=== PATIENT | female | born 1965 | race Caucasian/White ===

== ENCOUNTER 2016-09-11 09:55 | Emergency (ER) | payer BC ==
[~2016-09-11] VITALS: Wt 70.8 kg
[~2016-09-11 09:55] MED LIST: ATIVAN PO; CARAFATE1 GM/10 ML PO; CYMBALTA30 MG PO; HYDROCODONE BIT1 T11 PO; METOPROLOL SR25 MG PO; MIRALAX17 GM/DOSE PO; NEURONTIN300 MG PO; PAXIL10 MG PO; PLAQUENIL200 MG PO; SYNTHROID0.025 MG PO
[2016-09-11] MEDS ORDERED: LEVOTHYROXIN0.175 MG PO (09:58)
[2016-09-11] MEDS ORDERED: PREDNISONE10 MG PO (10:13)
== END 2016-09-11 10:20 | disposition home or self-care (01) ==
LOC: ED 09:55
DX: L23.7 Allergic contact dermatitis due to plants, except food (principal); Z79.899 Other long term (current) drug therapy

== ENCOUNTER 2016-10-25 04:47 | Emergency (ER) | payer BC ==
[~2016-10-25] VITALS: Ht 160 cm; Wt 68.0 kg
[~2016-10-25 04:47] MED LIST changes: +LEVOTHYROXIN0.175 MG PO; +PREDNISONE10 MG PO
[2016-10-25] MEDS ORDERED: PROTONIX20 MG PO (04:59)
[2016-10-25 05:49] LABS: BASO % 0.9 % (0.0-1.0); EOS # 0.1 10*3/uL (0.0-0.4); EOS % 1.3 % (1.0-4.0); HEMATOCRIT 47.1 % (37.0-47.0); HEMOGLOBIN 15.6 g/dl (12.0-16.0); LYMPH # 1.3 10*3/uL (1.3-4.4); LYMPH % 27.5 % (27.0-41.0); MEAN CELL VOLUME 88.2 fl (81.0-99.0); MEAN CORPUSCULAR HGB 29.2 pg (27.0-31.0); MEAN CORPUSCULAR HGB CONC 33.1 g/dl (33.0-37.0); MEAN PLATELET VOLUME 11.3 fl (9.6-12.3); MONO # 0.5 10*3/uL (0.1-1.0); MONO % 11.1 % (3.0-9.0); NEUT # 2.7 10*3/uL (2.3-7.9); NEUT % 58.5 % (47.0-73.0); PLATELET COUNT AUTOMATED 248 10*3/uL (130-400); RED BLOOD COUNT 5.34 10*6/uL (4.10-5.10); RED CELL DISTRI WIDTH 12.4 % (0-14.5); WHITE BLOOD COUNT 4.6 10*3/uL (4.8-10.8)
[2016-10-25 05:57] LABS: ALBUMIN 2.2 gm/dl (3.1-4.5); ALKALINE PHOSPHATASE 127 U/L (45-117); BILIRUBIN, TOTAL 0.4 mg/dl (0.2-1.0); BUN 9 mg/dl (7-24); C-REACTIVE PROTEIN 0.59 MG/DL (0-0.3); CARBON DIOXIDE 29 mmol/L (21-32); CHLORIDE 108 mmol/L (98-107); EST GLOM FILT AFRICAN AMERICAN > 60 ml/min; GLUCOSE 99 mg/dL (65-99); MAGNESIUM 1.8 mg/dL (1.5-2.1); POTASSIUM 3.7 mmol/L (3.5-5.1); SGOT/AST 21 IU/L (3-35); SGPT/ALT 17 U/L (12-78); SODIUM 144 mmol/L (136-145); TOTAL PROTEIN 6.4 gm/dL (6.4-8.2)
[2016-10-25] MEDS ORDERED: CARAFATE1 G1 PO (06:40)
[2016-10-25] MEDS ORDERED: PROTONIX40 MG PO (06:40)
== END 2016-10-25 07:13 | disposition home or self-care (01) ==
LOC: ED 04:47
PROVIDERS: Emergency Medicine Emergency Medical Services
DX: K21.9 Gastro-esophageal reflux disease without esophagitis (principal); R10.9 Unspecified abdominal pain; R11.2 Nausea with vomiting, unspecified; Z88.5 Allergy status to narcotic agent; Z90.49 Acquired absence of other specified parts of digestive tract; Z79.899 Other long term (current) drug therapy

== ENCOUNTER 2016-11-14 17:42 | Emergency (ER) | payer BC ==
[~2016-11-14] VITALS: Ht 160 cm; Wt 68.0 kg
[~2016-11-14 17:42] MED LIST changes: +CARAFATE1 G1 PO; +PROTONIX20 MG PO; +PROTONIX40 MG PO
== END 2016-11-14 20:38 | disposition home or self-care (01) ==
LOC: ED 17:42
DX: M25.561 Pain in right knee (principal); Z90.49 Acquired absence of other specified parts of digestive tract; K21.9 Gastro-esophageal reflux disease without esophagitis; Z88.5 Allergy status to narcotic agent; Z96.651 Presence of right artificial knee joint

== ENCOUNTER 2017-07-21 13:35 | Emergency (ER) | payer BC ==
[~2017-07-21] VITALS: Ht 160 cm; Wt 64.4 kg
[2017-07-21 14:34] LABS: BASO % 0.7 % (0.0-1.0); EOS # 0.1 10*3/uL (0.0-0.4); EOS % 1.4 % (1.0-4.0); HEMATOCRIT 41.6 % (37.0-47.0); HEMOGLOBIN 13.9 g/dl (12.0-16.0); LYMPH # 1.4 10*3/uL (1.3-4.4); LYMPH % 25.5 % (27.0-41.0); MEAN CELL VOLUME 88.3 fl (81.0-99.0); MEAN CORPUSCULAR HGB 29.5 pg (27.0-31.0); MEAN CORPUSCULAR HGB CONC 33.4 g/dl (33.0-37.0); MEAN PLATELET VOLUME 10.5 fl (9.6-12.3); MONO # 0.5 10*3/uL (0.1-1.0); MONO % 8.6 % (3.0-9.0); NEUT # 3.6 10*3/uL (2.3-7.9); NEUT % 63.6 % (47.0-73.0); PLATELET COUNT AUTOMATED 254 10*3/uL (130-400); RED BLOOD COUNT 4.71 10*6/uL (4.10-5.10); RED CELL DISTRI WIDTH 13.3 % (0-14.5); WHITE BLOOD COUNT 5.6 10*3/uL (4.8-10.8)
[2017-07-21 14:49] LABS: ALBUMIN 2.3 gm/dl (3.1-4.5); ALKALINE PHOSPHATASE 118 U/L (45-117); BUN 9 mg/dl (7-24); CHLORIDE 108 mmol/L (98-107); CREATININE 0.65 mg/dL (0.55-1.02); POTASSIUM 3.6 mmol/L (3.5-5.1); SGOT/AST 24 IU/L (3-35); SGPT/ALT 22 U/L (12-78); SODIUM 144 mmol/L (136-145); TOTAL PROTEIN 5.7 gm/dL (6.4-8.2)
== END 2017-07-21 16:30 | disposition home or self-care (01) ==
LOC: ED 13:35
PROVIDERS: Nurse Practitioner Family
DX: G89.18 Other acute postprocedural pain (principal); R10.32 Left lower quadrant pain; K21.9 Gastro-esophageal reflux disease without esophagitis; Z79.899 Other long term (current) drug therapy; Z98.890 Other specified postprocedural states; Z90.49 Acquired absence of other specified parts of digestive tract; Z90.710 Acquired absence of both cervix and uterus; Z88.6 Allergy status to analgesic agent; Z98.84 Bariatric surgery status

== ENCOUNTER 2018-04-16 08:53 | Inpatient (IN) | payer BC ==
--- NOTE | ~2018-04-16 | EKG ---
[place], [place] ELECTROCARDIOGRAM REPORT NAME: DIAMOND CORTÉS UNIT #: [id number] ROOM: 405 DOCTOR: JULIAN DRAFT REPORT BIRTHDATE: [birth year] [facility] Test Date: 2018-04-16 Test Time: 14:52:05 Pat Name: DIAMOND CORTÉS Department: Room: 405 Gender: F Trouble Lineman: : 1965 Requested By: BRIELLE HAINES Order Number: [id number] Reading MD: Mk Ramirez MD Measurements Intervals [place] Rate: 74 P: 77 [place]: 155 QRS: 54 QRSD: 72 T: 70 QT: 398 QTc: 442 Interpretive Statements Sinus arrhythmia Compared to ECG 04/16/2018 11:37:03 Sinus rhythm no longer present Ventricular premature complex(es) no longer present Electronically Signed On 04-16-2018 17:49:42 PST by Mk Ramirez MD CM:EKGRPT:ELECTROCARDIOGRAM REPORT [id number] 1749 BRIELLE HURTADO DRAFT REPORT BRIELLE HAINES DO
--- NOTE | ~2018-04-16 | EKG ---
[place], [place] ELECTROCARDIOGRAM REPORT NAME: DIAMOND CORTÉS UNIT #: [id number] ROOM: [facility] DOCTOR: JULIAN DRAFT REPORT BIRTHDATE: [birth year] [facility] Test Date: 2018-04-16 Test Time: 23:57:39 Pat Name: DIAMOND CORTÉS Department: Room: [place] [address] Gender: F Tin Pot Operator: Shraddha Lilly : 1965 Requested By: VLADIMIR SARGENT Order Number: [id number] Reading MD: Mk Ramirez MD Measurements Intervals [place] Rate: 74 P: 80 [place]: 143 QRS: 56 QRSD: 77 T: 55 QT: 434 QTc: 482 Interpretive Statements Sinus rhythm Atrial premature complexes Probable left atrial enlargement Probable left ventricular hypertrophy Compared to ECG 04/16/2018 17:56:02 Atrial premature complex(es) now present Electronically Signed On 04-18-2018 16:25:31 PST by Mk Ramirez MD CM:EKGRPT:ELECTROCARDIOGRAM REPORT [id number] 1625 VLADIMIR SARGENT EPIPHANY DRAFT REPORT VLADIMIR SARGENT
--- NOTE | ~2018-04-16 | EKG ---
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
--- NOTE | ~2018-04-16 | EKG ---
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
--- NOTE | ~2018-04-16 | EKG ---
[place], [place] ELECTROCARDIOGRAM REPORT NAME: DIAMOND CORTÉS UNIT #: [id number] ROOM: [facility] DOCTOR: JULIAN DRAFT REPORT BIRTHDATE: [birth year] [facility] Test Date: 2018-04-17 Test Time: 09:31:39 Pat Name: DIAMOND CORTÉS Department: Room: [place] [address] Gender: F Reeler Operator: Maria Esther Noble : 1965 Requested By: JOAQUIN BENZ Order Number: [id number] Reading MD: Mk Ramirez MD Measurements Intervals [place] Rate: 77 P: 68 [place]: 142 QRS: 46 QRSD: 78 T: 46 QT: 381 QTc: 432 Interpretive Statements Sinus rhythm Consider left atrial enlargement Compared to ECG 04/16/2018 17:56:02 No significant changes Electronically Signed On 04-17-2018 8:10:24 PST by kM Ramirez MD CM:EKGRPT:ELECTROCARDIOGRAM REPORT 9 JOAQUIN BENZ EPIPHANY DRAFT REPORT JOAQUIN BENZ
--- NOTE | ~2018-04-16 | EKG ---
[place], [place] ELECTROCARDIOGRAM REPORT NAME: DIAMOND CORTÉS UNIT #: [id number] ROOM: 405 DOCTOR: JULIAN DRAFT REPORT BIRTHDATE: [birth year] [facility] Test Date: 2018-04-16 Test Time: 11:37:03 Pat Name: DIAMOND CORTÉS Department: Room: 405 Gender: F Meteorology Instructor: Maria Esther Noble : 1965 Requested By: BRIELLE HAINES Order Number: [id number] Reading MD: Mk Ramirez MD Measurements Intervals [place] Rate: 71 P: 81 [place]: 148 QRS: 60 QRSD: 76 T: 60 QT: 383 QTc: 417 Interpretive Statements Sinus rhythm Multiple premature complexes, vent \T\ supraven Compared to earlier ECG this date PACs and PVCs are now present Electronically Signed On 04-16-2018 11:13:56 PST by Mk Ramirez MD CM:EKGRPT:ELECTROCARDIOGRAM REPORT 1137 1113 BRIELLE HURTADO DRAFT REPORT BRIELLE HAINES DO
--- NOTE | ~2018-04-16 | EKG ---
[place], [place] ELECTROCARDIOGRAM REPORT NAME: DIAMOND CORTÉS UNIT #: [id number] ROOM: [facility] DOCTOR: JULIAN DRAFT REPORT BIRTHDATE: [birth year] [facility] Test Date: 2018-04-17 Test Time: 08:19:35 Pat Name: DIAMOND CORTÉS Department: Room: [facility] Gender: F Paper Supervisor: Maria Esther Noble : 1965 Requested By: JOAQUIN BENZ Order Number: [id number] Reading MD: Mk Ramirez MD Measurements Intervals [place] Rate: 67 P: 74 [place]: 150 QRS: 47 QRSD: 73 T: 57 QT: 386 QTc: 408 Interpretive Statements Sinus rhythm Compared to ECG 04/16/2018 17:56:02 Atrial abnormality no longer present Electronically Signed On 04-17-2018 8:10:07 PST by Mk Ramirez MD CM:EKGRPT:ELECTROCARDIOGRAM REPORT 8 9 JOAQUIN BENZ EPIPHANY DRAFT REPORT JOAQUIN BENZ
--- NOTE | ~2018-04-16 | EKG ---
[place], [place] ELECTROCARDIOGRAM REPORT NAME: DIAMOND CORTÉS UNIT #: [id number] ROOM: 405 DOCTOR: JULIAN DRAFT REPORT BIRTHDATE: [birth year] [facility] Test Date: 2018-04-16 Test Time: 08:58:33 Pat Name: DIAMOND CORTÉS Department: Room: 405 Gender: F Consumer Relations Specialist: Maria Esther Noble : 1965 Requested By: BRIELLE HAINES Order Number: [id number] Reading MD: Mk Ramirez MD Measurements Intervals [place] Rate: 72 P: 96 [place]: 148 QRS: 83 QRSD: 72 T: 82 QT: 384 QTc: 421 Interpretive Statements Sinus rhythm Electronically Signed On 04-16-2018 11:05:20 PST by Mk Ramirez MD CM:EKGRPT:ELECTROCARDIOGRAM REPORT [id number] 1105 BRIELLE HURTADO DRAFT REPORT BRIELLE HAINES DO
--- NOTE | ~2018-04-16 | EKG ---
[place], [place] ELECTROCARDIOGRAM REPORT NAME: DIAMOND CORTÉS UNIT #: [id number] ROOM: 405 DOCTOR: JULIAN DRAFT REPORT BIRTHDATE: [birth year] [facility] Test Date: 2018-04-16 Test Time: 17:56:02 Pat Name: DIAMOND CORTÉS Department: Room: 405 2 Gender: F Cost Control Supervisor: : 1965 Requested By: MK RAYGOZA Order Number: [id number] Reading MD: Mk Raygoza MD Measurements Intervals [place] Rate: 84 P: 86 [place]: 154 QRS: 48 QRSD: 68 T: 51 QT: 367 QTc: 434 Interpretive Statements Sinus rhythm Left atrial enlargement Compared to ECG 04/16/2018 11:37:03 Atrial abnormality now present Electronically Signed On 04-16-2018 17:50:51 PST by Mk Raygoza MD CM:EKGRPT:ELECTROCARDIOGRAM REPORT 175 [id number] MK RAYGOZA MD EPIPHANY DRAFT REPORT MK RAYGOZA MD
[2018-04-16 08:59] VITALS: BP 157/98
[2018-04-16 09:19] LABS: EOS # 0.1 10*3/uL (0.0-0.4); EOS % 1.2 % (1.0-4.0); HEMATOCRIT 40.6 % (37.0-47.0); HEMOGLOBIN 13.2 g/dl (12.0-16.0); LYMPH # 1.4 10*3/uL (1.3-4.4); LYMPH % 33.6 % (27.0-41.0); MEAN CELL VOLUME 87.9 fl (81.0-99.0); MEAN CORPUSCULAR HGB 28.6 pg (27.0-31.0); MEAN CORPUSCULAR HGB CONC 32.5 g/dl (33.0-37.0); MEAN PLATELET VOLUME 10.1 fl (9.6-12.3); MONO # 0.4 10*3/uL (0.1-1.0); MONO % 10.6 % (3.0-9.0); NEUT # 2.2 10*3/uL (2.3-7.9); NEUT % 53.6 % (47.0-73.0); PLATELET COUNT AUTOMATED 267 10*3/uL (130-400); RED BLOOD COUNT 4.62 10*6/uL (4.10-5.10); RED CELL DISTRI WIDTH 13.6 % (0-14.5); WHITE BLOOD COUNT 4.1 10*3/uL (4.8-10.8)
[2018-04-16 09:27] LABS: ACT PARTIAL THROMBO TIME 23.8 SECONDS (20.8-31.5); INTERNATIONAL NORM RATIO 0.9 (2.0-3.5)
[2018-04-16 09:34] LABS: LIPASE 446 U/L (73-393)
[2018-04-16 09:35] LABS: ALBUMIN 2.2 gm/dl (3.1-4.5); ALKALINE PHOSPHATASE 116 U/L (45-117); BUN 11 mg/dl (7-24); CHLORIDE 110 mmol/L (98-107); CREATININE 0.55 mg/dL (0.55-1.02); POTASSIUM 4.1 mmol/L (3.5-5.1); SGOT/AST 13 IU/L (3-35); SGPT/ALT 15 U/L (12-78); SODIUM 142 mmol/L (136-145); TOTAL PROTEIN 6.1 gm/dL (6.4-8.2)
[2018-04-16 09:37] LABS: TROPONIN I < 0.015 ng/ml (<0.045)
[2018-04-16 10:10] VITALS: BP 143/80
[2018-04-16] MEDS ORDERED: Synthroid,Levo50 MCG PO (11:35)
[2018-04-16] MEDS ORDERED: NEURONTIN400 MG PO (11:36)
[2018-04-16] MEDS ORDERED: PANTOPRAZOLE SO40 MG PO (11:36)
[2018-04-16] MEDS ORDERED: SEPTDS PO (11:45)
[2018-04-16 12:00] VITALS: BP 116/91
[2018-04-16 16:00] VITALS: BP 130/81
[2018-04-16 20:00] VITALS: BP 134/83
[2018-04-17] VITALS: BP 142/78
[2018-04-17 05:55] LABS: BASO % 0.5 % (0.0-1.0); BUN 9 mg/dl (7-24); CHLORIDE 111 mmol/L (98-107); CHOLESTEROL 179 mg/dL (<200); CREATININE 0.63 mg/dL (0.55-1.02); EOS % 0.1 % (1.0-4.0); HDL CHOLESTEROL 57 mg/dl (40-60); HEMATOCRIT 39.4 % (37.0-47.0); HEMOGLOBIN 12.6 g/dl (12.0-16.0); LDL CHOLESTEROL 115 mg/dL (9-159); LYMPH # 1.5 10*3/uL (1.3-4.4); LYMPH % 17.4 % (27.0-41.0); MEAN CELL VOLUME 89.5 fl (81.0-99.0); MEAN CORPUSCULAR HGB 28.6 pg (27.0-31.0); MEAN PLATELET VOLUME 10.2 fl (9.6-12.3); MONO # 0.8 10*3/uL (0.1-1.0); MONO % 8.5 % (3.0-9.0); NEUT # 6.4 10*3/uL (2.3-7.9); NEUT % 73.3 % (47.0-73.0); PHOSPHOROUS 3.7 mg/dL (2.5-4.9); PLATELET COUNT AUTOMATED 265 10*3/uL (130-400); POTASSIUM 4.2 mmol/L (3.5-5.1); RED CELL DISTRI WIDTH 13.7 % (0-14.5); SODIUM 147 mmol/L (136-145); TRIGLYCERIDES 37 mg/dl (<150); VLDL CHOLESTEROL 7 mg/dL (6-40); WHITE BLOOD COUNT 8.8 10*3/uL (4.8-10.8)
[2018-04-17 06:34] VITALS: BP 122/76
[2018-04-17 06:50] LABS: ACT PARTIAL THROMBO TIME 22.5 SECONDS (20.8-31.5)
[2018-04-17 08:00] VITALS: BP 124/80
[2018-04-17 12:00] VITALS: BP 115/80
[2018-04-17 16:00] VITALS: BP 118/77
== END 2018-04-17 16:35 | disposition short-term general hospital (02) | DRG 280 ==
LOC: ED 08:53 → EDHOLD 09:48 → ICCU 09:48 → 4E 10:52 → ICCU 04-17 06:37
PROVIDERS: Emergency Medicine; Internal Medicine; Student in an Organized Health Care Education/Training Program; ADMIT Internal Medicine
DX: I21.4 Non-ST elevation (NSTEMI) myocardial infarction (principal); E43 Unspecified severe protein-calorie malnutrition; D72.819 Decreased white blood cell count, unspecified; E87.8 Other disorders of electrolyte and fluid balance, not elsewhere classified; K21.9 Gastro-esophageal reflux disease without esophagitis; M79.7 Fibromyalgia; Z96.619 Presence of unspecified artificial shoulder joint; R07.89 Other chest pain; F32.9 Major depressive disorder, single episode, unspecified; E66.3 Overweight; Z88.6 Allergy status to analgesic agent; Z68.28 Body mass index [BMI] 28.0-28.9, adult; Z90.49 Acquired absence of other specified parts of digestive tract; Z90.710 Acquired absence of both cervix and uterus; Z98.891 History of uterine scar from previous surgery; Z87.891 Personal history of nicotine dependence; Z82.3 Family history of stroke; Z79.899 Other long term (current) drug therapy

== ENCOUNTER 2018-04-20 16:21 | Emergency (ER) | payer BC ==
[~2018-04-20] VITALS: Ht 162.5 cm; Wt 73.5 kg
--- NOTE | ~2018-04-20 | EKG ---
[place], [place] ELECTROCARDIOGRAM REPORT NAME: DIAMOND CORTÉS UNIT #: [id number] ROOM: DOCTOR: JULIAN DRAFT REPORT BIRTHDATE: [address] [facility] Test Date: 2018-04-20 Test Time: 16:59:55 Pat Name: DIAMOND CORTÉS Department: Room: Gender: F Short Goods Drier: WILY : 1965 Requested By: IVELISSE IQBAL Order Number: [id number] Reading MD: Measurements Intervals [place] Rate: 71 P: 62 AR: 139 QRS: 56 QRSD: 71 T: 34 QT: 385 QTc: 419 Interpretive Statements Sinus rhythm Consider left ventricular hypertrophy Baseline wander in lead(s) III,V3 Compared to ECG 04/17/2018 09:31:39 No significant changes CM:EKGRPT:ELECTROCARDIOGRAM REPORT 1659 1401 IVELISSE JORDAN DRAFT REPORT IVELISSE PRESSLEY
[~2018-04-20 16:21] MED LIST changes: +NEURONTIN400 MG PO; +PANTOPRAZOLE SO40 MG PO; +SEPTDS PO; +Synthroid,Levo50 MCG PO
[2018-04-20 17:12] LABS: BASO % 0.8 % (0.0-1.0); EOS # 0.1 10*3/uL (0.0-0.4); EOS % 1.4 % (1.0-4.0); HEMATOCRIT 41.5 % (37.0-47.0); HEMOGLOBIN 13.3 g/dl (12.0-16.0); LYMPH # 1.6 10*3/uL (1.3-4.4); LYMPH % 31.5 % (27.0-41.0); MEAN CELL VOLUME 88.5 fl (81.0-99.0); MEAN CORPUSCULAR HGB 28.4 pg (27.0-31.0); MEAN PLATELET VOLUME 10.5 fl (9.6-12.3); MONO # 0.5 10*3/uL (0.1-1.0); MONO % 10.8 % (3.0-9.0); NEUT # 2.7 10*3/uL (2.3-7.9); NEUT % 55.1 % (47.0-73.0); PLATELET COUNT AUTOMATED 295 10*3/uL (130-400); RED BLOOD COUNT 4.69 10*6/uL (4.10-5.10); RED CELL DISTRI WIDTH 13.7 % (0-14.5); WHITE BLOOD COUNT 4.9 10*3/uL (4.8-10.8)
[2018-04-20 17:21] LABS: ACT PARTIAL THROMBO TIME 24.3 SECONDS (20.8-31.5)
[2018-04-20 17:32] LABS: ALBUMIN 2.4 gm/dl (3.1-4.5); ALKALINE PHOSPHATASE 189 U/L (45-117); BUN 13 mg/dl (7-24); CHLORIDE 106 mmol/L (98-107); CREATININE 0.77 mg/dL (0.55-1.02); LIPASE 53 U/L (73-393); POTASSIUM 4.1 mmol/L (3.5-5.1); SGOT/AST 25 IU/L (3-35); SGPT/ALT 43 U/L (12-78); SODIUM 139 mmol/L (136-145); TOTAL PROTEIN 6.6 gm/dL (6.4-8.2)
[2018-04-20 17:35] LABS: TROPONIN I 0.603 ng/ml (<0.045)
[2018-04-20 17:56] LABS: BILIRUBIN NEGATIVE (NEGATIVE); BLOOD NEGATIVE (NEGATIVE); CLARITY CLEAR (CLEAR); COLOR YELLOW (YELLOW); GLUCOSE NEGATIVE (NEGATIVE); KETONE NEGATIVE (NEGATIVE); LEUKO ESTERASE NEGATIVE (NEGATIVE); NITRITE NEGATIVE (NEGATIVE)
[2018-04-20 18:11] LABS: BACTERIA 1+
== END 2018-04-20 18:02 | disposition home or self-care (01) ==
LOC: ED 16:21
PROVIDERS: Physician Assistant
DX: R20.2 Paresthesia of skin (principal); Z88.8 Allergy status to other drugs, medicaments and biological substances; Z79.899 Other long term (current) drug therapy; Z79.2 Long term (current) use of antibiotics; Z90.710 Acquired absence of both cervix and uterus; Z90.49 Acquired absence of other specified parts of digestive tract; Z87.891 Personal history of nicotine dependence

== ENCOUNTER 2018-05-19 14:40 | Emergency (ER) | payer BC ==
[2018-05-19] MEDS ORDERED: BRILINTA90 M1 PO (15:25)
[2018-05-19] MEDS ORDERED: ASPIRIN CHILDRE81 MG PO (15:26)
[2018-05-19] MEDS ORDERED: METOPROLOL SUCC25 M2 PO (15:26)
[2018-05-19] MEDS ORDERED: ATORVASTATIN CA40 M1 PO (15:27)
[2018-05-19] MEDS ORDERED: HYDROXYZINE HCL25 MG PO (15:28)
== END 2018-05-19 15:39 | disposition home or self-care (01) ==
LOC: ED 14:40
DX: M79.621 Pain in right upper arm (principal); K21.9 Gastro-esophageal reflux disease without esophagitis; E03.9 Hypothyroidism, unspecified; J45.909 Unspecified asthma, uncomplicated; Z88.6 Allergy status to analgesic agent; Z79.899 Other long term (current) drug therapy; Z79.82 Long term (current) use of aspirin; Z87.891 Personal history of nicotine dependence; X58.XXXA Exposure to other specified factors, initial encounter; Y93.89 Activity, other specified; Y92.89 Other specified places as the place of occurrence of the external cause; Y99.8 Other external cause status

== ENCOUNTER 2018-10-28 09:07 | Inpatient (IN) | payer BC ==
[~2018-10-28] VITALS: Ht 162.6 cm; Wt 79.4 kg
--- NOTE | ~2018-10-28 | EKG ---
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
--- NOTE | ~2018-10-28 | CON ---
[place], [place] REPORT OF CONSULTATION NAME: DIAMOND CORTÉS [facility] #: [id number] UNIT #: [id number] ROOM: 521 DOCTOR: IGOR URBINA MD BIRTHDATE: [birth year] DOS: 10/29/2018 CARDIOLOGY CONSULTATION REASON FOR CONSULTATION: Chest pain. HISTORY OF PRESENT ILLNESS: The patient is a 53-year-old patient with coronary artery disease, previous myocardial angina in 04/2018 with a coronary stent in 04/2018, admitted to the Emergency Room for midscapular pain. She noted that in the morning she was visiting her sister. At that time she noted to have pain in the upper mid back, in the mid scapular area. She described this as a punch sensation, it is moderate in severity. This is more as constant pain. She presented to the Emergency Room and admitted to the hospital and Cardiology was consulted for further recommendations. She had about 3 stents inserted in 04/2018 in [place]. Now, she is compliant with her medications, especially aspirin and Brilinta. She denies exertional chest pains, palpitations or dizziness. No PND or orthopnea. No shortness of breath. No fever and chills. The patient did have some nausea yesterday. No cough or hemoptysis. No tingling, numbness or weakness. No bladder symptoms. No genitourinary symptoms. REVIEW OF SYSTEMS: Review of 10 systems negative except as mentioned above. PAST MEDICAL HISTORY: 1. Coronary artery disease, status post stents x 3 in 04/2018, details unknown. 2. History of lupus. 3. Acid reflux. 4. Depression. 5. Hypothyroidism. 6. Fibromyalgia. PAST SURGICAL HISTORY: 1. History of coronary artery stents in 04/2018. 2. History of gastric bypass about 5 years ago with revision in 06/2017. 3. History of cholecystectomy. 4. History of hysterectomy. 5. History of knee replacement. 6. History of shoulder replacement. FAMILY HISTORY: Father healthy at age 82. Mother has a cancer at age 82. Sister had a stroke. Brother had coronary artery disease. ALLERGIES: Reviewed. HOME MEDICATIONS: Reviewed including aspirin, Brilinta, metoprolol, and Lipitor. PHYSICAL EXAMINATION: VITAL SIGNS: Blood pressure 126/70, pulse 78, respiratory rate 16. GENERAL: Alert, comfortable, in no acute distress. [place], [place] REPORT OF CONSULTATION [id number] UNIT #: [id number] ROOM: 521 DOCTOR: CIARA BHATT,IGOR BIRTHDATE: [birth year] HEENT: Pupils are round and equal. No jaundice. Tongue was moist. NECK: Supple. No distended neck veins. No carotid bruit. CHEST: Symmetrical, nontender. LUNGS: Clear to auscultation bilaterally. HEART: Regular rhythm, no S3, no palpable thrills. ABDOMEN: Benign, nontender. Bowel sounds normal. EXTREMITIES: Showed no edema. Distal pulses palpable. SKIN: Warm and dry. No cyanosis, no clubbing. RECTAL: Deferred. GENITOURINARY: Deferred. NEUROLOGIC: The patient is alert with no focal neurologic deficit. PSYCHIATRIC: The patient is alert with good mood and affect. REVIEW OF THE DIAGNOSTIC TESTS: EKG showed normal sinus rhythm. Her labs reviewed. Cardiac enzymes unremarkable. IMPRESSION: 1. Chest pain, atypical, myocardial infarction ruled out. 2. Coronary artery disease, status post stents in 04/2018. 3. History of lupus. 4. Acid reflux. 5. Hypothyroidism. 6. Fibromyalgia. RECOMMENDATIONS: 1. Continue current medications. The patient was discussed the importance of the dual antiplatelet therapy until 04/2019 due to her coronary stents. 2. Lexiscan stress test today. If the Lexiscan stress is unremarkable, she can be discharged home from the cardiac standpoint. 3. The patient is advised to continue her dual antiplatelet therapy with aspirin, Brilinta, metoprolol and statins. The above recommendations discussed with the patient and all questions were answered, especially follow with her senior medical writer after discharge. IGOR URBINA MD CM:CONSTR:REPORT OF CONSULTATION 1510 11/17/18 0736 interface
--- NOTE | ~2018-10-28 | EKG ---
[place], [place] ELECTROCARDIOGRAM REPORT NAME: DIAMOND CORTÉS UNIT #: [id number] ROOM: 521 DOCTOR: JULIAN DRAFT REPORT BIRTHDATE: [birth year] [facility] Test Date: 2018-10-28 Test Time: 09:07:30 Pat Name: DIAMOND CORTÉS Department: ER Room: 521 Gender: F Marketing Copywriter: : 1965 Requested By: BRIELLE HAINES Order Number: [id number] Reading MD: Jacinta Corrales Measurements Intervals [place] Rate: 66 P: 26 [place]: 135 QRS: 52 QRSD: 81 T: 24 QT: 400 QTc: 420 Interpretive Statements Sinus rhythm Baseline wander in lead(s) II Compared to ECG 04/20/2018 16:59:55 No significant changes Electronically Signed On 10-29-2018 9:33:19 PDT by Jacinta Corrales CM:EKGRPT:ELECTROCARDIOGRAM REPORT 6 0933 BRIELLE HURTADO DRAFT REPORT BRIELLE HAINES DO
--- NOTE | ~2018-10-28 | ST ---
[place], [place] EXERCISE STRESS TEST REPORT NAME: DIAMOND CORTÉS [facility] #: [id number] UNIT #: [id number] ROOM: 521 DOCTOR: CIARA BHATT,IGOR BIRTHDATE: [birth year] DOS: 10/29/2018 LEXISCAN STRESS TEST REASON FOR TEST: Evaluation of chest pain. PHYSICAL EXAMINATION NECK: Supple. LUNGS: Clear anteriorly. HEART: Regular rhythm. PROTOCOL: Lexiscan protocol. Maximum heart rate 102, peak blood pressure 126/76. SYMPTOMS: The patient is chest pain free, developed mild shortness of breath, resolved. EKG: Resting EKG showed sinus rhythm. Stress EKG showed no ischemia, no arrhythmias. CONCLUSION: Clinically, the patient is chest pain free. EKG nonischemic. POST-STRESS COMPLICATIONS: None. The patient received a total of 0.4 mg of Lexiscan. IGOR URBINA MD CM:STRESS:EXERCISE STRESS TEST REPORT 1157 2325 IGOR URBINA MD
--- NOTE | ~2018-10-28 | EKG ---
[place], [place] ELECTROCARDIOGRAM REPORT NAME: DIAMOND CORTÉS UNIT #: [id number] ROOM: 521 DOCTOR: JULIAN DRAFT REPORT BIRTHDATE: [birth year] [facility] Test Date: 2018-10-28 Test Time: 15:18:09 Pat Name: DIAMOND CORTÉS Department: Room: 521 Gender: F Hospital Supervisor: Merissa Kendrick : 1965 Requested By: BRIELLE HAINES Order Number: [id number] Reading MD: Jacinta Corrales Measurements Intervals [place] Rate: 72 P: 88 [place]: 158 QRS: 58 QRSD: 81 T: 52 QT: 452 QTc: 495 Interpretive Statements Sinus rhythm Borderline prolonged QT interval Compared to ECG 04/20/2018 16:59:55 Electronically Signed On 10-29-2018 9:39:07 PDT by Jacinta Corrales CM:EKGRPT:ELECTROCARDIOGRAM REPORT 1518 0939 BRIELLE HURTADO DRAFT REPORT BRIELLE HAINES DO
[~2018-10-28 09:07] MED LIST changes: +ASPIRIN CHILDRE81 MG PO; +ATORVASTATIN CA40 M1 PO; +BRILINTA90 M1 PO; +HYDROXYZINE HCL25 MG PO; +METOPROLOL SUCC25 M2 PO
[2018-10-28 09:12] VITALS: BP 119/71
[2018-10-28 09:38] LABS: BASO % 0.9 % (0.0-1.0); EOS # 0.1 10*3/uL (0.0-0.4); EOS % 1.1 % (1.0-4.0); HEMATOCRIT 40.7 % (37.0-47.0); HEMOGLOBIN 12.6 g/dl (12.0-16.0); LYMPH # 1.5 10*3/uL (1.3-4.4); LYMPH % 31.5 % (27.0-41.0); MEAN CELL VOLUME 87.9 fl (81.0-99.0); MEAN CORPUSCULAR HGB 27.2 pg (27.0-31.0); MEAN PLATELET VOLUME 10.6 fl (9.6-12.3); MONO # 0.5 10*3/uL (0.1-1.0); MONO % 10.8 % (3.0-9.0); NEUT # 2.6 10*3/uL (2.3-7.9); NEUT % 55.3 % (47.0-73.0); PLATELET COUNT AUTOMATED 266 10*3/uL (130-400); RED BLOOD COUNT 4.63 10*6/uL (4.10-5.10); RED CELL DISTRI WIDTH 14.6 % (0-14.5); WHITE BLOOD COUNT 4.6 10*3/uL (4.8-10.8)
[2018-10-28 09:52] LABS: ACT PARTIAL THROMBO TIME 26.5 SECONDS (20.0-32.1)
[2018-10-28 09:56] LABS: ALBUMIN 2.2 gm/dl (3.1-4.5); ALKALINE PHOSPHATASE 132 U/L (45-117); BUN 13 mg/dl (7-24); CHLORIDE 111 mmol/L (98-107); CREATININE 0.71 mg/dL (0.55-1.02); POTASSIUM 4.3 mmol/L (3.5-5.1); SGOT/AST 22 IU/L (3-35); SGPT/ALT 28 U/L (12-78); SODIUM 145 mmol/L (136-145); TOTAL PROTEIN 6.1 gm/dL (6.4-8.2)
[2018-10-28 09:57] LABS: LIPASE 60 U/L (73-393)
[2018-10-28 09:58] LABS: TROPONIN I < 0.015 ng/ml (<0.045)
[2018-10-28 10:01] VITALS: BP 120/65
[2018-10-28 13:44] VITALS: BP 118/62
[2018-10-28 14:06] VITALS: BP 109/56
--- NOTE | 2018-10-28 14:06 | NUR ---
NOTED BLE BRUISING IN DIFFERENT STAGES OF HEALING. PATIENT STATES IT DO TO TAKING BRILINTA AT HOME AND NOW SHE BRUISES EASILY.
--- NOTE | 2018-10-28 14:06 | NUR ---
A 53, admitted to 5E, under the services of GERALDINE Bullock DO with a diagnosis of ATYPICAL CHEST PAIN. Chief complaint is MID-BACK PAIN. Patient arrived via bed from ER. Monitor applied. Initial assessment completed. Vital signs taken and recorded. GERALDINE BULLOCK DO notified of admission to the unit. Orders received. See assessment for past medical history, medications and allergies. Patient oriented to unit. Clothing/patient valuable form completed. ANITA BROWN
[2018-10-28] MEDS ORDERED: AMITRIPTYLINE25 MG PO (14:29)
--- NOTE | 2018-10-28 14:40 | NUR ---
INFORMED THAT MEDICATIONS ARE UPDATED.
--- NOTE | 2018-10-28 15:00 | NUR ---
Hep Lock discontinued, RAN. Site symptomatic, PAINFUL AT SITE. Pressure applied. Sterile dressing applied. ANITA BROWN
--- NOTE | 2018-10-28 15:01 | NUR ---
IV started right wrist with #20 angiocath after 0 attempts. The IV site was prepped with Chloraprep. Heparin lock attached. Sterile dressing applied. Patient tolerated precedure well. Procedure performed according to [facility] policy & procedure. ANITA BROWN
[2018-10-28 16:00] VITALS: BP 134/80
--- NOTE | 2018-10-28 17:50 | NUR ---
CONSULT MESSAGE SENT TO .
--- NOTE | 2018-10-28 17:55 | NUR ---
DR. URBINA CALLED BACK, INFORMED OF PATIENT. STATED STRESS TEST IN AM, NPO AFTER MIDNIGHT EXCEPT MEDS.
[2018-10-28 20:00] VITALS: BP 127/80
--- NOTE | 2018-10-28 20:45 | NUR ---
ADMINISTERED PRN MORPHINE PRESCRIBED FOR 11/15 UPPER BACK PAIN. PT DENIES CHEST PAIN AT THIS TIME. WILL CONTINUE TO MONITOR AND REASSESS IN 30 MINUTES. NO OTHER COMPLAINTS AT THIS TIME. CALL LIGHT IN REACH.
--- NOTE | 2018-10-28 22:45 | NUR ---
PT STATES SHE IS STILL HAVING BACK PAIN. WILL ADMINISTER PRN DOSE OF NORCO & CONTINUE TO MONITOR THE PT.
--- NOTE | 2018-10-28 22:50 | NUR ---
ADMINSTERED PRN NORCO PRESCRIBED FOR PT COMPLAINT OF 8/10 BACK PAIN. WILL CONTINUE TO MONITOR AND REASSESS IN AN HOUR. NO OTHER COMPLAINTS AT THIS TIME. CALL LIGHT IN REACH.
[2018-10-29] VITALS: BP 95/45
--- NOTE | 2018-10-29 | NUR ---
PT ASLEEP, NO SIGNS OF DISCOMFORT OR DISTRESS NOTED. WILL CONTINUE TO MONITOR.
--- NOTE | 2018-10-29 03:11 | NUR ---
PRN NORCO ADMINISTERED WITH A SIP OF WATER FOR PT COMPLAINT OF BACK PAIN RATED A 7/10 ON THE PAIN SCALE. WILL CONTINUE TO MONITOR AND REASSESS IN AN HOUR. NO OTHER COMPLAINTS AT THIS TIME. CALL LIGHT IN REACH.
--- NOTE | 2018-10-29 04:00 | NUR ---
PT ASLEEP. NO SIGNS OF DISCOMFORT OR DISTRESS NOTED.
[2018-10-29 06:47] LABS: BASO % 0.6 % (0.0-1.0); EOS % 0.8 % (1.0-4.0); HEMATOCRIT 36.7 % (37.0-47.0); HEMOGLOBIN 11.2 g/dl (12.0-16.0); LYMPH % 18.8 % (27.0-41.0); MEAN CORPUSCULAR HGB 26.5 pg (27.0-31.0); MEAN CORPUSCULAR HGB CONC 30.5 g/dl (33.0-37.0); MEAN PLATELET VOLUME 10.9 fl (9.6-12.3); MONO # 0.6 10*3/uL (0.1-1.0); MONO % 12.1 % (3.0-9.0); NEUT # 3.4 10*3/uL (2.3-7.9); NEUT % 67.3 % (47.0-73.0); PLATELET COUNT AUTOMATED 224 10*3/uL (130-400); RED BLOOD COUNT 4.22 10*6/uL (4.10-5.10); RED CELL DISTRI WIDTH 14.7 % (0-14.5); WHITE BLOOD COUNT 5.1 10*3/uL (4.8-10.8)
[2018-10-29 07:17] LABS: BUN 12 mg/dl (7-24); CHLORIDE 110 mmol/L (98-107); CREATININE 0.65 mg/dL (0.55-1.02); POTASSIUM 3.6 mmol/L (3.5-5.1); SODIUM 144 mmol/L (136-145)
--- NOTE | 2018-10-29 07:18 | NUR ---
INFORMED CONSENT OBTAINED FOR A LEXISCAN STRESS TEST WITH DR. URBINA. RESTING EKG NSR WITH A HT RT OF 78 AND A BP OF 126/70. BREATH SOUNDS CLEAR, POX 97% VIA RA. COMPLETED ONE MINUTE OF A LEXISCAN PROTOCOL RECEIVING LEXISCAN 0.4 MG OVER 10 SECONDS. DEVELOPED SOB THAT WAS RELIEVED IN RECOVERY. HAD A PEAK HT RT OF 102, WITH A BP OF 100/60. LAST RECOVERY HT RT OF 96, WITH A BP OF 108/70. AWAITING NUCLEAR IMAGING IN STABLE CONDITION.
--- NOTE | 2018-10-29 08:01 | NUR ---
IN TO ROOM TO RECIEVE BEDSIDE REPORT FROM PATTI RN. PATIENT OFF OF FLOOR FOR A STESS TEST.
--- NOTE | 2018-10-29 09:00 | NUR ---
[employer]orer [employer] in to talk to patient. Patient states lives at home with . There are few steps in the home. Physician: leslye morrison Pharmacy: [facility] health services: none Patient's level of ADLs: INDEPENDENT Patient has working utilities: all working DME: none Follow-up physician's appointment after d/c: will be made by hospitalist nurse director upon discharge Does patient want to access PORTAL?: no Discharge plan discussed with patient, she lives at home with , she is indepenedent in adls and ambulation, she states she will return home when able and denies any home needs. BINDU BRISENO
--- NOTE | 2018-10-29 11:33 | NUR ---
RESTING IN BED. RESPIRATIONS EASY, NO DISTRESS NOTED, NO VOICED COMPLAINTS. BED IN LOWEST LOCKED PSOTIION, CALL LIGHT WITHIN REACH AND ENCOURAGED.
[2018-10-29 12:00] VITALS: BP 117/50
--- NOTE | 2018-10-29 15:30 | NUR ---
PATIENT COMPLAINS OF BACK PAIN RATED A 7. PRN NORCO ADMINISTERED. WILL MONITOR FOR EFFECTIVENESS.
[2018-10-29 16:00] VITALS: BP 116/65
--- NOTE | 2018-10-29 18:10 | NUR ---
Discharge instructions reviewed with patient/family. Patient receptive and verbalizes understanding. Follow-up care arranged. Written instructions given to patient/family. BARB MACEDO
== END 2018-10-29 18:10 | disposition home or self-care (01) | DRG 313 ==
LOC: ED 09:07 → 5E 13:33 → EDHOLD 13:33 → 5E 13:50
PROVIDERS: Emergency Medicine; Internal Medicine; ADMIT Internal Medicine
PROC: 3E073KZ Introduction of Other Diagnostic Substance into Coronary Artery, Percutaneous Approach (ICD-10-PCS; principal; 2018-10-29)
PROC: 4A02XM4 Measurement of Cardiac Total Activity, External Approach (ICD-10-PCS; principal; 2018-10-29)
DX: R07.89 Other chest pain (principal); E43 Unspecified severe protein-calorie malnutrition; I25.10 Atherosclerotic heart disease of native coronary artery without angina pectoris; E66.9 Obesity, unspecified; M32.19 Other organ or system involvement in systemic lupus erythematosus; R74.8 Abnormal levels of other serum enzymes; E83.41 Hypermagnesemia; E87.8 Other disorders of electrolyte and fluid balance, not elsewhere classified; D72.819 Decreased white blood cell count, unspecified; K21.0 Gastro-esophageal reflux disease with esophagitis; Z96.659 Presence of unspecified artificial knee joint; J45.909 Unspecified asthma, uncomplicated; Z96.619 Presence of unspecified artificial shoulder joint; F32.9 Major depressive disorder, single episode, unspecified; E03.9 Hypothyroidism, unspecified; M79.7 Fibromyalgia; Z95.5 Presence of coronary angioplasty implant and graft; Z68.34 Body mass index [BMI] 34.0-34.9, adult; I25.2 Old myocardial infarction; Z87.11 Personal history of peptic ulcer disease; Z98.84 Bariatric surgery status; Z90.49 Acquired absence of other specified parts of digestive tract; Z90.710 Acquired absence of both cervix and uterus; Z98.891 History of uterine scar from previous surgery; Z87.891 Personal history of nicotine dependence; Z82.3 Family history of stroke; Z80.0 Family history of malignant neoplasm of digestive organs; Z88.8 Allergy status to other drugs, medicaments and biological substances; Z79.82 Long term (current) use of aspirin; Z79.899 Other long term (current) drug therapy; Z79.890 Hormone replacement therapy; Z82.49 Family history of ischemic heart disease and other diseases of the circulatory system; Z68.31 Body mass index [BMI] 31.0-31.9, adult

== ENCOUNTER 2018-12-14 16:00 | Emergency (ER) | payer BC ==
[~2018-12-14] VITALS: Ht 160 cm; Wt 81.6 kg
[~2018-12-14 16:00] MED LIST changes: +AMITRIPTYLINE25 MG PO
== END 2018-12-14 17:17 | disposition home or self-care (01) ==
LOC: ED 16:00
DX: M16.12 Unilateral primary osteoarthritis, left hip (principal); M25.552 Pain in left hip; Z87.891 Personal history of nicotine dependence; Z98.890 Other specified postprocedural states; Z90.49 Acquired absence of other specified parts of digestive tract; Z98.84 Bariatric surgery status; Z79.82 Long term (current) use of aspirin; Z79.899 Other long term (current) drug therapy; Z88.6 Allergy status to analgesic agent

== ENCOUNTER 2020-01-03 16:25 | Observation (INO) | payer BC ==
[~2020-01-03] VITALS: Ht 160 cm; Wt 86.4 kg
[2020-01-03 16:46] LABS: BASO # 0.1 10*3/uL (0.0-0.1); BASO % 0.9 % (0.0-1.0); EOS % 0.7 % (1.0-4.0); HEMATOCRIT 36.9 % (37.0-47.0); LYMPH # 1.7 10*3/uL (1.3-4.4); LYMPH % 30.6 % (27.0-41.0); MEAN CELL VOLUME 83.7 fl (81.0-99.0); MEAN CORPUSCULAR HGB 25.2 pg (27.0-31.0); MEAN CORPUSCULAR HGB CONC 30.1 g/dl (33.0-37.0); MONO # 0.7 10*3/uL (0.1-1.0); MONO % 12.3 % (3.0-9.0); NEUT % 55.3 % (47.0-73.0); PLATELET COUNT AUTOMATED 276 10*3/uL (130-400); RED BLOOD COUNT 4.41 10*6/uL (4.10-5.10); RED CELL DISTRI WIDTH 15.8 % (0-14.5); WHITE BLOOD COUNT 5.5 10*3/uL (4.8-10.8)
--- NOTE | 2020-01-03 16:49 | NUR ---
PATIENT DENIES WOUNDS A&OX4.
[2020-01-03 16:50] VITALS: BP 125/78
[2020-01-03 16:57] LABS: ACT PARTIAL THROMBO TIME 26.1 SECONDS (20.0-32.1)
[2020-01-03 17:04] LABS: ALBUMIN 2.1 gm/dl (3.1-4.5); ALKALINE PHOSPHATASE 101 U/L (45-117); BUN 11 mg/dl (7-24); CHLORIDE 112 mmol/L (98-107); CREATININE 0.72 mg/dL (0.55-1.02); POTASSIUM 4.2 mmol/L (3.5-5.1); SGOT/AST 15 IU/L (3-35); SGPT/ALT 19 U/L (12-78); SODIUM 143 mmol/L (136-145)
[2020-01-03 17:05] LABS: TROPONIN I < 0.015 ng/ml (<0.045)
[2020-01-03 17:42] VITALS: BP 107/68
--- NOTE | 2020-01-03 17:42 | NUR ---
PATIENT STATES THAT SHE HAD RELIEF WITH HER ONE NITRO TABLET. DR NEELY NOTIFIED.
[2020-01-03 19:50] VITALS: BP 116/70
--- NOTE | 2020-01-03 19:50 | NUR ---
A 54, admitted to , under the services of BRIELLE Palacios DO with a diagnosis of CHEST PAIN. Chief complaint is NAUSEA/BACK PAIN. Patient arrived via bed from ER. Monitor applied. Initial assessment completed. Vital signs taken and recorded. BRIELLE PALACIOS DO notified of admission to the unit. Orders received. See assessment for past medical history, medications and allergies. Patient oriented to unit. Clothing/patient valuable form completed. ANITA BROWN
[2020-01-03] MEDS ORDERED: ROPINIROLE HYDRO1 MG PO (20:15)
[2020-01-03] MEDS ORDERED: PROAIR HFA8.5 GM INH (20:16)
--- NOTE | 2020-01-03 20:24 | NUR ---
INFORMED THAT HOME MEDS ARE VERIFIED. ELISE REQUESTING NEBULIZING [place] AND PHENERGAN, STATES UNBAL TO TAKE ZOFRAN AND REFUSED TO HAVE IT ADMINISTERED. STETS OK TO PLACE ORDERS.
--- NOTE | 2020-01-03 21:05 | NUR ---
PATIENT MEDICATED WITH X1 DOSE PHENERGAN AND MORPHINE FOR C/O NAUSEA AND 7/10 BACK PAIN. WILL MONITOR
--- NOTE | 2020-01-03 22:06 | NUR ---
MORPHINE AND PHENERGAN EFFECTIVE
--- NOTE | 2020-01-03 23:45 | NUR ---
PATIENT REQUESTED PAIN MEDICATION, NOT JESUS AT THIS TIME. WILL REASSES NEED WHEN MEDICATION IS AVAILABLE
[2020-01-04] VITALS: BP 129/74
--- NOTE | 2020-01-04 01:05 | NUR ---
PATIENT IS RESTING QUIETLY IN BED, EYES CLOSED. NO OVERT DISTRESS NOTED, RESP ARE EASY AND REGULAR. CALL LIGHT WITHIN REACH
--- NOTE | 2020-01-04 01:43 | NUR ---
PATIENT MEDICATED WITH MORPHINE PER REQUEST FOR 11/15 BACK PAIN. WILL MONITOR
--- NOTE | 2020-01-04 02:12 | NUR ---
ANSWERING SERVICES CALLED FOR GRIFFITH CONSULT, MESSAGE LEFT
--- NOTE | 2020-01-04 06:25 | NUR ---
PATIENT MEDICATED WITH MORPHINE FOR C/O HIP PAIN 01/15. WILL MONITOR
[2020-01-04 08:00] VITALS: BP 140/53
--- NOTE | 2020-01-04 08:27 | NUR ---
PT MEDICATED WITH ZOFRAN 4MG IV FOR C/O NAUSEA.
--- NOTE | 2020-01-04 09:00 | NUR ---
[employer] Functional Analyst in to talk to patient. Patient states lives at home with . There are 2 steps in the home. Physician: leslye morrison Pharmacy: [facility] health services: none Patient's level of ADLs: INDEPENDENT Patient has working utilities: all working DME: none Follow-up physician's appointment after d/c: will be made by hospitalist nurse director upon discharge Does patient want to access PORTAL?: no Discharge plan discussed with patient, she lives at home with , she is independent in adls and ambulation, states she will return home when discharged and denies any home needs, patient is having a stress test today, case management will follow. BINDU BRISENO
--- NOTE | 2020-01-04 10:45 | NUR ---
PT TAKEN TO CARDIAC REHAB FOR STRESS TEST.
--- NOTE | 2020-01-04 11:34 | NUR ---
INFORMED CONSENT SIGNED FOR LEXISCAN STRESS TEST WITH DR. DOMINGUEZ. RESTING EKG SINUS BRADYCARDIA, HR 57, BP 112/68. PULSE OX 91% AND LUNGS SOUNDS DEMINISHED BILATERALLY. COMPLETED ONE MINUTE OF LEXISCAN PROTOCOL RECEIVING LEXISCAN 0.4MG OVER 10 SECONDS. NO ARRHYTHMIAS OR ST CHANGES NOTED. PT C/O SOB, BEIN ANXIOUS AND A FUNNY FEELING. LAST RECOVERY HR 83, BP 118/68. WAITING NUCLEAR SCANNING IN STABLE CONDITION.
--- NOTE | 2020-01-04 12:51 | NUR ---
PT RETURNED FROM STRESS TEST AT THIS TIME.
--- NOTE | 2020-01-04 13:04 | NUR ---
PT MEDICATED WITH MORPHINE 2MG IV FOR C/O CHRONIC BACK PAIN.
--- NOTE | 2020-01-04 13:30 | NUR ---
just returned to [facility] from other testing. Patient requests to eat. Echo still pending.
--- NOTE | 2020-01-04 13:43 | NUR ---
PT STATED MORPHINE WAS EFFECTIVE IN EASING HER BACK PAIN.
--- NOTE | 2020-01-04 16:12 | NUR ---
PT DISCHARGED AT THIS TIME WITH TO HOME.
--- NOTE | 2020-01-04 16:12 | NUR ---
Discharge instructions reviewed with patient/family. Patient receptive and verbalizes understanding. Follow-up care arranged. Written instructions given to patient/family. ZAIDA MCCARTNEY
== END 2020-01-04 16:12 | disposition home or self-care (01) ==
LOC: ED 16:25 → 4E 18:11 → EDHOLD 18:11 → 4E 18:50
PROVIDERS: Emergency Medicine; ADMIT Emergency Medicine; ATTEND Emergency Medicine
DX: R07.89 Other chest pain (principal); I25.10 Atherosclerotic heart disease of native coronary artery without angina pectoris; E78.5 Hyperlipidemia, unspecified; K21.9 Gastro-esophageal reflux disease without esophagitis; M79.7 Fibromyalgia; F32.9 Major depressive disorder, single episode, unspecified; J45.909 Unspecified asthma, uncomplicated; E03.9 Hypothyroidism, unspecified; M32.9 Systemic lupus erythematosus, unspecified; E43 Unspecified severe protein-calorie malnutrition

== ENCOUNTER 2020-04-26 01:43 | Emergency (ER) | payer BC ==
[~2020-04-26 01:43] MED LIST changes: +PROAIR HFA8.5 GM INH; +ROPINIROLE HYDRO1 MG PO
[2020-04-26 02:06] LABS: BASO % 0.4 % (0.0-1.0); EOS % 0.2 % (1.0-4.0); HEMATOCRIT 36.8 % (37.0-47.0); LYMPH # 0.9 10*3/uL (1.3-4.4); LYMPH % 20.1 % (27.0-41.0); MEAN CELL VOLUME 82.5 fl (81.0-99.0); MEAN CORPUSCULAR HGB 24.2 pg (27.0-31.0); MEAN CORPUSCULAR HGB CONC 29.3 g/dl (33.0-37.0); MEAN PLATELET VOLUME 10.3 fl (9.6-12.3); MONO # 0.5 10*3/uL (0.1-1.0); MONO % 10.6 % (3.0-9.0); NEUT # 3.1 10*3/uL (2.3-7.9); NEUT % 68.5 % (47.0-73.0); PLATELET COUNT AUTOMATED 266 10*3/uL (130-400); RED BLOOD COUNT 4.46 10*6/uL (4.10-5.10); WHITE BLOOD COUNT 4.5 10*3/uL (4.8-10.8)
[2020-04-26 02:20] LABS: BUN 11 mg/dl (7-24); CHLORIDE 109 mmol/L (98-107); CREATININE 0.66 mg/dL (0.55-1.02); SODIUM 141 mmol/L (136-145)
== END 2020-04-26 02:57 | disposition home or self-care (01) ==
LOC: ED 01:43
PROVIDERS: Internal Medicine
DX: K08.89 Other specified disorders of teeth and supporting structures (principal); R10.13 Epigastric pain; R06.02 Shortness of breath; Z88.6 Allergy status to analgesic agent; Z79.899 Other long term (current) drug therapy; Z79.82 Long term (current) use of aspirin

== ENCOUNTER 2021-04-14 23:33 | Emergency (ER) | payer BC ==
[~2021-04-14] VITALS: Ht 162.5 cm; Wt 81.6 kg
[2021-04-15 01:15] LABS: BASO # 0.1 10*3/uL (0.0-0.1); BASO % 0.9 % (0.0-1.0); EOS # 0.1 10*3/uL (0.0-0.4); EOS % 1.2 % (1.0-4.0); HEMATOCRIT 36.5 % (37.0-47.0); LYMPH # 1.5 10*3/uL (1.3-4.4); LYMPH % 23.3 % (27.0-41.0); MEAN CELL VOLUME 78.2 fl (81.0-99.0); MEAN CORPUSCULAR HGB 23.1 pg (27.0-31.0); MEAN CORPUSCULAR HGB CONC 29.6 g/dl (33.0-37.0); MEAN PLATELET VOLUME 10.2 fl (9.6-12.3); MONO # 0.8 10*3/uL (0.1-1.0); MONO % 12.2 % (3.0-9.0); NEUT % 62.1 % (47.0-73.0); PLATELET COUNT AUTOMATED 299 10*3/uL (130-400); RED BLOOD COUNT 4.67 10*6/uL (4.10-5.10); RED CELL DISTRI WIDTH 16.4 % (0-14.5); WHITE BLOOD COUNT 6.5 10*3/uL (4.8-10.8)
[2021-04-15 01:31] LABS: ALBUMIN 2.1 gm/dl (3.1-4.5); ALKALINE PHOSPHATASE 114 U/L (45-117); BUN 12 mg/dl (7-24); CHLORIDE 113 mmol/L (98-107); CREATININE 0.75 mg/dL (0.55-1.02); POTASSIUM 3.8 mmol/L (3.5-5.1); SGOT/AST 27 IU/L (3-35); SGPT/ALT 32 U/L (12-78); SODIUM 144 mmol/L (136-145); TOTAL PROTEIN 6.1 gm/dL (6.4-8.2)
== END 2021-04-15 02:20 | disposition home or self-care (01) ==
LOC: ED 23:33
PROVIDERS: Emergency Medicine
DX: L29.9 Pruritus, unspecified (principal); I25.10 Atherosclerotic heart disease of native coronary artery without angina pectoris; E43 Unspecified severe protein-calorie malnutrition; J45.909 Unspecified asthma, uncomplicated; M79.7 Fibromyalgia; K21.9 Gastro-esophageal reflux disease without esophagitis; I25.2 Old myocardial infarction; E78.5 Hyperlipidemia, unspecified; E03.9 Hypothyroidism, unspecified; F32.9 Major depressive disorder, single episode, unspecified; M32.9 Systemic lupus erythematosus, unspecified; Z88.8 Allergy status to other drugs, medicaments and biological substances; Z79.899 Other long term (current) drug therapy; Z79.82 Long term (current) use of aspirin; Z98.84 Bariatric surgery status; Z90.49 Acquired absence of other specified parts of digestive tract; Z90.710 Acquired absence of both cervix and uterus; Z96.659 Presence of unspecified artificial knee joint; Z96.619 Presence of unspecified artificial shoulder joint; Z95.5 Presence of coronary angioplasty implant and graft; Z98.890 Other specified postprocedural states; Z87.891 Personal history of nicotine dependence

== ENCOUNTER 2021-04-22 13:37 | Emergency (ER) | payer BC | END 2021-04-22 13:53 | disposition left against medical advice (07) | LOC: ED 13:37 | DX: R10.9 Unspecified abdominal pain (principal); R11.0 Nausea; Z53.21 Procedure and treatment not carried out due to patient leaving prior to being seen by health care provider ==

== ENCOUNTER 2021-08-20 11:44 | Emergency (ER) | payer BC ==
[~2021-08-20] VITALS: Wt 77.1 kg
== END 2021-08-20 14:39 | disposition home or self-care (01) ==
LOC: ED 11:44
DX: S40.021A Contusion of right upper arm, initial encounter (principal); Z88.6 Allergy status to analgesic agent; Z79.899 Other long term (current) drug therapy; Z79.82 Long term (current) use of aspirin; Z98.890 Other specified postprocedural states; Z90.49 Acquired absence of other specified parts of digestive tract; Z90.710 Acquired absence of both cervix and uterus; X58.XXXA Exposure to other specified factors, initial encounter; Y93.89 Activity, other specified; Y92.89 Other specified places as the place of occurrence of the external cause; Y99.8 Other external cause status

== ENCOUNTER → 2021-09-26 | Outpatient (CLI) | payer BC ==
[2021-09-26 10:40] LABS: BASO % 0.7 % (0.0-1.0); EOS % 0.9 % (1.0-4.0); HEMATOCRIT 35.2 % (37.0-47.0); LYMPH # 1.2 10*3/uL (1.3-4.4); LYMPH % 27.9 % (27.0-41.0); MEAN CELL VOLUME 79.6 fl (81.0-99.0); MEAN CORPUSCULAR HGB 23.1 pg (27.0-31.0); MONO # 0.5 10*3/uL (0.1-1.0); MONO % 10.6 % (3.0-9.0); NEUT # 2.6 10*3/uL (2.3-7.9); NEUT % 59.4 % (47.0-73.0); PLATELET COUNT AUTOMATED 266 10*3/uL (130-400); RED BLOOD COUNT 4.42 10*6/uL (4.10-5.10); WHITE BLOOD COUNT 4.4 10*3/uL (4.8-10.8)
[2021-09-26 11:15] LABS: ALKALINE PHOSPHATASE 100 U/L (45-117); BUN 10 mg/dl (7-24); CHLORIDE 111 mmol/L (98-107); CHOLESTEROL 112 mg/dL (<200); CREATININE 0.75 mg/dL (0.55-1.02); IRON 34 ug/dL (50-170); LDL CHOLESTEROL 42 mg/dL (9-159); POTASSIUM 3.9 mmol/L (3.5-5.1); SGOT/AST 21 IU/L (3-35); SGPT/ALT 22 U/L (12-78); SODIUM 144 mmol/L (136-145); TRIGLYCERIDES 48 mg/dl (<150)
[2021-09-26 11:21] LABS: FREE T4 1.18 ng/dl (0.76-1.46); THYROID STIM HORMONE (HS) 0.642 uIU/ml (0.358-4.75); TOTAL IRON BINDING CAPACITY 493 ug/dl (250-450); TOTAL PROTEIN 5.7 gm/dL (6.4-8.2)
[2021-09-26 11:31] LABS: VITAMIN D, 25-HYDROXY 83.2 ng/mL (30-100)
[2021-09-26 11:32] LABS: FERRITIN 6.7 ng/mL (10.0-291.0)
== END | disposition home or self-care (01) ==
LOC: LAB 10:04
PROVIDERS: ATTEND Internal Medicine
DX: I25.10 Atherosclerotic heart disease of native coronary artery without angina pectoris (principal); Z98.84 Bariatric surgery status

== ENCOUNTER 2021-12-03 19:42 | Emergency (ER) | payer BC ==
[2021-12-03 20:55] LABS: BASO % 0.8 % (0.0-1.0); EOS % 0.8 % (1.0-4.0); HEMATOCRIT 38.7 % (37.0-47.0); LYMPH # 1.4 10*3/uL (1.3-4.4); LYMPH % 27.6 % (27.0-41.0); MEAN CORPUSCULAR HGB 24.1 pg (27.0-31.0); MEAN CORPUSCULAR HGB CONC 29.7 g/dl (33.0-37.0); MONO # 0.6 10*3/uL (0.1-1.0); MONO % 10.8 % (3.0-9.0); NEUT # 3.1 10*3/uL (2.3-7.9); NEUT % 59.8 % (47.0-73.0); PLATELET COUNT AUTOMATED 285 10*3/uL (130-400); RED BLOOD COUNT 4.78 10*6/uL (4.10-5.10); RED CELL DISTRI WIDTH 18.1 % (0-14.5); WHITE BLOOD COUNT 5.2 10*3/uL (4.8-10.8)
[2021-12-03 21:15] LABS: ALKALINE PHOSPHATASE 121 U/L (45-117); BUN 11 mg/dl (7-24); CHLORIDE 110 mmol/L (98-107); CREATININE 0.69 mg/dL (0.55-1.02); LIPASE 62 U/L (73-393); POTASSIUM 4.1 mmol/L (3.5-5.1); SGOT/AST 26 IU/L (3-35); SGPT/ALT 30 U/L (12-78); SODIUM 142 mmol/L (136-145); TOTAL PROTEIN 5.8 gm/dL (6.4-8.2)
== END 2021-12-03 22:17 | disposition left against medical advice (07) ==
LOC: ED 19:42
PROVIDERS: Emergency Medicine
DX: R10.13 Epigastric pain (principal); R11.10 Vomiting, unspecified; F32.9 Major depressive disorder, single episode, unspecified; M79.7 Fibromyalgia; K21.9 Gastro-esophageal reflux disease without esophagitis; E78.5 Hyperlipidemia, unspecified; E03.9 Hypothyroidism, unspecified; M32.9 Systemic lupus erythematosus, unspecified; I25.10 Atherosclerotic heart disease of native coronary artery without angina pectoris; I25.2 Old myocardial infarction; E46 Unspecified protein-calorie malnutrition; J45.909 Unspecified asthma, uncomplicated; Z88.6 Allergy status to analgesic agent; Z79.899 Other long term (current) drug therapy; Z79.82 Long term (current) use of aspirin; Z98.84 Bariatric surgery status; Z90.710 Acquired absence of both cervix and uterus; Z95.5 Presence of coronary angioplasty implant and graft; Z90.49 Acquired absence of other specified parts of digestive tract; Z96.612 Presence of left artificial shoulder joint; Z96.659 Presence of unspecified artificial knee joint; Z87.891 Personal history of nicotine dependence

== ENCOUNTER → 2022-02-13 | Outpatient (CLI) | payer BC ==
[2022-02-13 09:43] LABS: BASO # 0.1 10*3/uL (0.0-0.1); BASO % 0.9 % (0.0-1.0); EOS % 0.6 % (1.0-4.0); HEMATOCRIT 36.8 % (37.0-47.0); LYMPH % 18.2 % (27.0-41.0); MEAN CORPUSCULAR HGB CONC 30.4 g/dl (33.0-37.0); MEAN PLATELET VOLUME 9.9 fl (9.6-12.3); MONO # 0.5 10*3/uL (0.1-1.0); MONO % 9.9 % (3.0-9.0); NEUT # 3.8 10*3/uL (2.3-7.9); NEUT % 70.2 % (47.0-73.0); PLATELET COUNT AUTOMATED 318 10*3/uL (130-400); RED BLOOD COUNT 4.66 10*6/uL (4.10-5.10); RED CELL DISTRI WIDTH 17.3 % (0-14.5); WHITE BLOOD COUNT 5.4 10*3/uL (4.8-10.8)
[2022-02-13 10:54] LABS: BUN 12 mg/dl (7-24); CHLORIDE 107 mmol/L (98-107); CREATININE 0.79 mg/dL (0.55-1.02); POTASSIUM 3.9 mmol/L (3.5-5.1); SODIUM 141 mmol/L (136-145)
[2022-02-13 10:55] LABS: ALKALINE PHOSPHATASE 127 U/L (45-117); FREE T4 1.35 ng/dl (0.76-1.46); SGOT/AST 23 IU/L (3-35); SGPT/ALT 28 U/L (12-78); THYROID STIM HORMONE (HS) 0.807 uIU/ml (0.358-4.75)
== END | disposition home or self-care (01) ==
LOC: LAB 09:19
PROVIDERS: ATTEND Internal Medicine
DX: R60.9 Edema, unspecified (principal)

== ENCOUNTER → 2022-04-03 | Outpatient (CLI) | payer BC ==
[2022-04-03 11:53] LABS: BUN 7 mg/dl (9-23); CHLORIDE 108 mmol/L (98-107); CREATININE 0.54 mg/dL (0.55-1.02); POTASSIUM 3.6 mmol/L (3.4-5.1)
== END | disposition home or self-care (01) ==
LOC: LAB 11:01
PROVIDERS: ATTEND Internal Medicine
DX: U07.1 COVID-19 (principal)

== ENCOUNTER → 2022-05-08 | Outpatient (CLI) | payer BC ==
[~2022-05-08] MED LIST changes: +ONDANSETRON HYDR4 M1 PO; +Percocet 325 MG1 TAB PO
== END | disposition home or self-care (01) ==
LOC: LAB 17:22
PROVIDERS: ATTEND Physician Assistant
DX: Z87.19 Personal history of other diseases of the digestive system (principal)

== ENCOUNTER 2023-01-27 19:48 | Emergency (ER) | payer BC ==
[~2023-01-27] VITALS: Ht 160 cm; Wt 68.0 kg
[2023-01-27 21:14] LABS: BASO % 0.7 % (0.0-1.0); EOS # 0.1 10*3/uL (0.0-0.4); EOS % 1.3 % (1.0-4.0); HEMATOCRIT 40.5 % (37.0-47.0); LYMPH # 1.3 10*3/uL (1.3-4.4); LYMPH % 23.3 % (27.0-41.0); MEAN CELL VOLUME 97.6 fl (81.0-99.0); MEAN CORPUSCULAR HGB 30.4 pg (27.0-31.0); MEAN CORPUSCULAR HGB CONC 31.1 g/dl (33.0-37.0); MEAN PLATELET VOLUME 10.5 fl (9.6-12.3); MONO # 0.7 10*3/uL (0.1-1.0); MONO % 13.6 % (3.0-9.0); NEUT # 3.3 10*3/uL (2.3-7.9); NEUT % 60.9 % (47.0-73.0); PLATELET COUNT AUTOMATED 221 10*3/uL (130-400); RED BLOOD COUNT 4.15 10*6/uL (4.10-5.10); WHITE BLOOD COUNT 5.5 10*3/uL (4.8-10.8)
[2023-01-27 21:44] LABS: ALKALINE PHOSPHATASE 127 U/L (46-116); BUN 12 mg/dl (9-23); CHLORIDE 112 mmol/L (98-107); POTASSIUM 3.5 mmol/L (3.4-5.1); SGPT/ALT 21 U/L (5-49)
[2023-01-28] MEDS ORDERED: CEPHALEXIN500 M1 PO (00:38)
[2023-01-28] MEDS ORDERED: PREDNISONE20 M1 PO (00:38)
== END 2023-01-28 00:49 | disposition home or self-care (01) ==
LOC: ED 19:48
PROVIDERS: Family Medicine
DX: M32.9 Systemic lupus erythematosus, unspecified (principal); I87.2 Venous insufficiency (chronic) (peripheral); Z88.8 Allergy status to other drugs, medicaments and biological substances; Z79.899 Other long term (current) drug therapy; Z79.82 Long term (current) use of aspirin; Z98.84 Bariatric surgery status; Z90.49 Acquired absence of other specified parts of digestive tract; Z90.710 Acquired absence of both cervix and uterus; Z96.659 Presence of unspecified artificial knee joint; Z96.612 Presence of left artificial shoulder joint; Z95.5 Presence of coronary angioplasty implant and graft; Z98.890 Other specified postprocedural states; Z87.891 Personal history of nicotine dependence

== ENCOUNTER 2023-07-13 19:53 | Emergency (ER) | payer BC ==
[~2023-07-13] VITALS: Ht 160 cm; Wt 68.0 kg
[~2023-07-13 19:53] MED LIST changes: +CEPHALEXIN500 M1 PO; +PREDNISONE20 M1 PO
[2023-07-13] MEDS ORDERED: Ciprofloxacin Hydrochloride 0.3% OPHTHLAMIC BOTTLE OT ONE (20:20)
[2023-07-13] MEDS ORDERED: LEVOTHYROXINE75 MCG PO (20:39)
[2023-07-13] MEDS ORDERED: HYDROXYCHLOROQ200 M1 PO (20:40)
[2023-07-13] MEDS ORDERED: GABAPENTIN600 MG PO (20:40)
[2023-07-13] MEDS ORDERED: CLOPIDOGREL75 MG PO (20:40)
[2023-07-13] MEDS ORDERED: DULOXETINE HCL60 MG PO (20:41)
== END 2023-07-13 20:57 | disposition home or self-care (01) ==
LOC: ED 19:53
DX: H60.91 Unspecified otitis externa, right ear (principal); Z88.8 Allergy status to other drugs, medicaments and biological substances; Z79.899 Other long term (current) drug therapy; Z79.2 Long term (current) use of antibiotics; Z79.82 Long term (current) use of aspirin; Z90.49 Acquired absence of other specified parts of digestive tract; Z90.711 Acquired absence of uterus with remaining cervical stump; Z96.659 Presence of unspecified artificial knee joint; Z96.619 Presence of unspecified artificial shoulder joint; Z95.5 Presence of coronary angioplasty implant and graft; Z98.890 Other specified postprocedural states; Z98.84 Bariatric surgery status; Z87.891 Personal history of nicotine dependence

== ENCOUNTER → 2023-07-30 | Outpatient (CLI) | payer BC ==
[~2023-07-30] MED LIST changes: +CLOPIDOGREL75 MG PO; +DULOXETINE HCL60 MG PO; +GABAPENTIN600 MG PO; +HYDROXYCHLOROQ200 M1 PO; +LEVOTHYROXINE75 MCG PO
[2023-07-30 09:23] LABS: BASO % 0.8 % (0.0-1.0); HEMATOCRIT 42.3 % (37.0-47.0); LYMPH % 26.5 % (27.0-41.0); MEAN CELL VOLUME 88.5 fl (81.0-99.0); MEAN CORPUSCULAR HGB 26.4 pg (27.0-31.0); MEAN CORPUSCULAR HGB CONC 29.8 g/dl (33.0-37.0); MEAN PLATELET VOLUME 10.1 fl (9.6-12.3); MONO # 0.4 10*3/uL (0.1-1.0); MONO % 9.2 % (3.0-9.0); NEUT # 2.5 10*3/uL (2.3-7.9); NEUT % 62.2 % (47.0-73.0); PLATELET COUNT AUTOMATED 267 10*3/uL (130-400); RED BLOOD COUNT 4.78 10*6/uL (4.10-5.10); RED CELL DISTRI WIDTH 15.2 % (0-14.5); WHITE BLOOD COUNT 3.9 10*3/uL (4.8-10.8)
[2023-07-30 09:48] LABS: ALKALINE PHOSPHATASE 129 U/L (46-116); BUN 10 mg/dl (9-23); CHLORIDE 111 mmol/L (98-107); FREE T4 1.09 ng/dl (0.89-1.76); POTASSIUM 3.7 mmol/L (3.4-5.1); SGPT/ALT 18 U/L (5-49); TOTAL PROTEIN 5.7 gm/dL (6.0-8.0)
[2023-07-31 11:08] LABS: ANTI-DSDNA ANTIBODIES 3 IU/mL (0-9)
== END | disposition home or self-care (01) ==
LOC: LAB 08:56
PROVIDERS: ATTEND Internal Medicine
DX: M32.9 Systemic lupus erythematosus, unspecified (principal)

== ENCOUNTER 2023-11-18 16:41 | Emergency (ER) | payer OTHER ==
[~2023-11-18] VITALS: Ht 160 cm; Wt 68.0 kg
[2023-11-18] MEDS ORDERED: Acetaminophen/Oxycodone 5 MG/325 MG TABLET PO ONE (17:15)
[2023-11-18] MEDS ORDERED: Dexamethasone Sodium Phospha 20 MG/5 ML VIAL IM ONE (17:15)
[2023-11-18] MEDS ORDERED: CYCLOBENZAPRINE5 M3 PO (18:15)
== END 2023-11-18 18:53 | disposition home or self-care (01) ==
LOC: ED 16:41
DX: M62.838 Other muscle spasm (principal); M54.2 Cervicalgia; J45.909 Unspecified asthma, uncomplicated; I25.2 Old myocardial infarction; K21.9 Gastro-esophageal reflux disease without esophagitis; Z96.653 Presence of artificial knee joint, bilateral; Z88.8 Allergy status to other drugs, medicaments and biological substances; Z90.49 Acquired absence of other specified parts of digestive tract; Z90.710 Acquired absence of both cervix and uterus; Z98.890 Other specified postprocedural states; Z87.891 Personal history of nicotine dependence

== ENCOUNTER 2023-11-20 10:16 | Emergency (ER) | payer OTHER ==
[~2023-11-20] VITALS: Ht 160 cm; Wt 68.0 kg
[~2023-11-20 10:16] MED LIST changes: +CYCLOBENZAPRINE5 M3 PO
[2023-11-20] MEDS ORDERED: Acetaminophen/Oxycodone 5 MG/325 MG TABLET PO ONE (11:00)
[2023-11-20] MEDS ORDERED: Dexamethasone Sodium Phospha 20 MG/5 ML VIAL IM ONE (11:00)
[2023-11-20] MEDS ORDERED: MEDROL DOSEPAK4 MG PO (11:21)
== END 2023-11-20 11:29 | disposition home or self-care (01) ==
LOC: ED 10:16
DX: M54.2 Cervicalgia (principal); Z88.6 Allergy status to analgesic agent; Z79.899 Other long term (current) drug therapy; Z79.82 Long term (current) use of aspirin; Z98.84 Bariatric surgery status; Z90.49 Acquired absence of other specified parts of digestive tract; Z96.659 Presence of unspecified artificial knee joint; Z96.612 Presence of left artificial shoulder joint; Z95.5 Presence of coronary angioplasty implant and graft; Z98.890 Other specified postprocedural states; Z87.891 Personal history of nicotine dependence

== ENCOUNTER 2024-04-05 08:57 | Emergency (ER) | payer OTHER ==
[~2024-04-05] VITALS: Ht 160 cm; Wt 72.6 kg
[~2024-04-05 08:57] MED LIST changes: +MEDROL DOSEPAK4 MG PO
[2024-04-05] MEDS ORDERED: Ondansetron Hydrochloride 4 MG/2 ML VIAL IV ONE (09:10)
[2024-04-05] MEDS ORDERED: MORPHINE Sulfate 2 MG/ML SYR IV ONE (09:10)
[2024-04-05] MEDS ORDERED: SODIUM CHLORIDE 0.9% 1,000 ML IV ONE (09:10)
[2024-04-05] MEDS ORDERED: methylPREDNISolone sod succ 125 MG VIAL IV ONE (09:10)
[2024-04-05 09:29] LABS: BASO % 0.4 % (0.0-1.0); HEMATOCRIT 40.4 % (37.0-47.0); MEAN CELL VOLUME 86.7 fl (81.0-99.0); MEAN CORPUSCULAR HGB CONC 31.2 g/dl (33.0-37.0); MEAN PLATELET VOLUME 9.9 fl (9.6-12.3); MONO # 0.5 10*3/uL (0.1-1.0); MONO % 8.9 % (3.0-9.0); NEUT # 4.5 10*3/uL (2.3-7.9); NEUT % 85.4 % (47.0-73.0); PLATELET COUNT AUTOMATED 251 10*3/uL (130-400); RED BLOOD COUNT 4.66 10*6/uL (4.10-5.10); WHITE BLOOD COUNT 5.3 10*3/uL (4.8-10.8)
[2024-04-05 09:50] LABS: BUN 9 mg/dl (9-23); CHLORIDE 105 mmol/L (98-107); POTASSIUM 3.8 mmol/L (3.4-5.1)
[2024-04-05] MEDS ORDERED: PREDNISONE20 M1 PO (10:00)
[2024-04-05] MEDS ORDERED: TRAMADOL HCL50 MG PO (10:00)
[2024-04-05] MEDS ORDERED: ACETAMINOPHEN500 M4 PO (10:02)
== END 2024-04-05 10:00 | disposition home or self-care (01) ==
LOC: ED 08:57
PROVIDERS: Emergency Medicine
DX: M32.9 Systemic lupus erythematosus, unspecified (principal); J45.909 Unspecified asthma, uncomplicated; R51.9 Headache, unspecified; M79.10 Myalgia, unspecified site; R09.89 Other specified symptoms and signs involving the circulatory and respiratory systems; I25.2 Old myocardial infarction; K21.9 Gastro-esophageal reflux disease without esophagitis; Z88.8 Allergy status to other drugs, medicaments and biological substances; Z87.891 Personal history of nicotine dependence; Z96.653 Presence of artificial knee joint, bilateral; Z90.49 Acquired absence of other specified parts of digestive tract; Z90.710 Acquired absence of both cervix and uterus; Z98.890 Other specified postprocedural states

== ENCOUNTER → 2024-07-02 | Outpatient (CLI) | payer OTHER ==
[~2024-07-02] MED LIST changes: +ACETAMINOPHEN500 M4 PO; +TRAMADOL HCL50 MG PO
== END | disposition home or self-care (01) ==
LOC: US 15:00
PROVIDERS: ATTEND Internal Medicine
DX: M79.89 Other specified soft tissue disorders (principal); L60.8 Other nail disorders; Z72.0 Tobacco use

== ENCOUNTER 2024-10-01 18:53 | Inpatient (IN) | payer OTHER ==
[~2024-10-01] VITALS: Ht 160 cm; Wt 68.0 kg
[2024-10-01 19:06] VITALS: BP 132/61
[2024-10-01] MEDS ORDERED: SODIUM CHLORIDE 0.9% 1,000 ML IV ONE (19:50)
[2024-10-01] MEDS ORDERED: Ondansetron Hydrochloride 4 MG/2 ML VIAL IV ONE (19:50)
[2024-10-01] MEDS ORDERED: HYDROmorphone Hydrochloride 1 MG/ML SYR IV ONE (19:50)
[2024-10-01 20:07] LABS: BASO % 0.4 % (0.0-1.0); EOS % 0.6 % (1.0-4.0); HEMATOCRIT 40.3 % (37.0-47.0); MEAN CELL VOLUME 85.2 fl (81.0-99.0); MEAN CORPUSCULAR HGB 24.9 pg (27.0-31.0); MEAN CORPUSCULAR HGB CONC 29.3 g/dl (33.0-37.0); MONO # 0.5 10*3/uL (0.1-1.0); MONO % 11.3 % (3.0-9.0); NEUT # 3.1 10*3/uL (2.3-7.9); NEUT % 64.9 % (47.0-73.0); PLATELET COUNT AUTOMATED 261 10*3/uL (130-400); RED BLOOD COUNT 4.73 10*6/uL (4.10-5.10); RED CELL DISTRI WIDTH 15.6 % (0-14.5); WHITE BLOOD COUNT 4.8 10*3/uL (4.8-10.8)
[2024-10-01 20:30] LABS: ALKALINE PHOSPHATASE 139 U/L (46-116); BUN 11 mg/dl (9-23); CHLORIDE 106 mmol/L (98-107); LIPASE 17 U/L (12-53); SGPT/ALT 25 U/L (5-49); TOTAL PROTEIN 5.8 gm/dL (6.0-8.0)
[2024-10-01] MEDS ORDERED: Pantoprazole Sodium 40 MG VIAL IV ONE (21:00)
[2024-10-01] MEDS ORDERED: fentaNYL CITRATE 100 MCG/2 ML VIAL IV ONE (21:00)
[2024-10-02 01:14] LABS: BILIRUBIN Negative (Negative); BLOOD Negative (Negative); CLARITY Clear (Clear); COLOR Yellow (Yellow); GLUCOSE Negative (Negative); KETONE Negative (Negative); LEUKO ESTERASE Trace (Negative); NITRITE Negative (Negative); SPECIFIC GRAVITY 1.015 (1.001-1.030)
[2024-10-02] MEDS ORDERED: fentaNYL CITRATE 100 MCG/2 ML VIAL IV ONE (01:15)
[2024-10-02 01:26] LABS: BACTERIA TRACE
[2024-10-02] MEDS ORDERED: BISACODYL 5 MG TAB PO PRN (03:15)
[2024-10-02] MEDS ORDERED: MORPHINE Sulfate 2 MG/ML SYR IV PRN (03:15)
[2024-10-02] MEDS ORDERED: Magnesium Hydroxide 30 ML UDC PO PRN (03:15)
[2024-10-02] MEDS ORDERED: ACETAMINOPHEN 325 MG TAB PO PRN (03:15)
[2024-10-02] MEDS ORDERED: Ondansetron Hydrochloride 4 MG/2 ML VIAL IV PRN (03:15)
[2024-10-02] MEDS ORDERED: Acetaminophen/Hydrocodone 5 MG/325 MG TABLET PO PRN (03:15)
[2024-10-02] MEDS ORDERED: BISACODYL 10 MG SUPP R PRN (03:15)
[2024-10-02] MEDS ORDERED: ACETAMINOPHEN 650 MG SUPP R PRN (03:15)
[2024-10-02] MEDS ORDERED: TEMAZEPAM 15 MG CAP PO PRN (03:15)
[2024-10-02 04:48] LABS: BASO % 0.5 % (0.0-1.0); EOS % 0.8 % (1.0-4.0); HEMATOCRIT 36.7 % (37.0-47.0); MEAN CELL VOLUME 85.7 fl (81.0-99.0); MEAN CORPUSCULAR HGB CONC 29.2 g/dl (33.0-37.0); MEAN PLATELET VOLUME 10.2 fl (9.6-12.3); MONO # 0.5 10*3/uL (0.1-1.0); NEUT # 2.3 10*3/uL (2.3-7.9); NEUT % 58.1 % (47.0-73.0); PLATELET COUNT AUTOMATED 225 10*3/uL (130-400); RED BLOOD COUNT 4.28 10*6/uL (4.10-5.10); RED CELL DISTRI WIDTH 15.8 % (0-14.5); WHITE BLOOD COUNT 3.9 10*3/uL (4.8-10.8)
[2024-10-02 05:11] LABS: ALKALINE PHOSPHATASE 126 U/L (46-116); BUN 10 mg/dl (9-23); CHLORIDE 108 mmol/L (98-107); CHOLESTEROL 109 mg/dL (<200); FREE T4 0.91 ng/dl (0.89-1.76); LDL CHOLESTEROL 62 mg/dL (9-159); POTASSIUM 4.5 mmol/L (3.4-5.1); SGPT/ALT 23 U/L (5-49); TOTAL PROTEIN 5.3 gm/dL (6.0-8.0); TRIGLYCERIDES 56 mg/dl (<150)
[2024-10-02] MEDS ORDERED: Enoxaparin Sodium 40 MG/0.4 ML SYR SC SCH (10:00)
[2024-10-02 11:08] LABS: VITAMIN D, 25-HYDROXY 44.6 ng/mL (30-100)
== END 2024-10-02 23:11 | disposition left against medical advice (07) | DRG 392 ==
LOC: ED 18:53 → EDHOLD 10-02 02:44
PROVIDERS: Emergency Medicine; Student in an Organized Health Care Education/Training Program; ADMIT Internal Medicine; ATTEND Internal Medicine
DX: K29.00 Acute gastritis without bleeding (principal); Z53.29 Procedure and treatment not carried out because of patient's decision for other reasons; Z88.8 Allergy status to other drugs, medicaments and biological substances; Z79.899 Other long term (current) drug therapy; Z79.01 Long term (current) use of anticoagulants; Z79.2 Long term (current) use of antibiotics; Z98.84 Bariatric surgery status; Z90.49 Acquired absence of other specified parts of digestive tract; Z90.710 Acquired absence of both cervix and uterus; Z98.891 History of uterine scar from previous surgery; Z87.891 Personal history of nicotine dependence; Z82.3 Family history of stroke; Z82.49 Family history of ischemic heart disease and other diseases of the circulatory system; Z80.8 Family history of malignant neoplasm of other organs or systems

== ENCOUNTER 2025-01-14 13:19 | Emergency (ER) | payer OTHER ==
[~2025-01-14] VITALS: Ht 160 cm; Wt 72.6 kg
[2025-01-14] MEDS ORDERED: TOPROL XL25 MG PO (13:37)
[2025-01-14] MEDS ORDERED: DRIZALMA SPRINK60 MG PO (13:39)
[2025-01-14] MEDS ORDERED: CARAFATE1 GM PO (13:40)
[2025-01-14] MEDS ORDERED: LEVOXYL75 MCG PO (13:41)
[2025-01-14] MEDS ORDERED: Acetaminophen/Oxycodone 5 MG/325 MG TABLET PO ONE (14:05)
== END 2025-01-14 16:12 | disposition home or self-care (01) ==
LOC: ED 13:19
DX: S70.02XA Contusion of left hip, initial encounter (principal); J45.909 Unspecified asthma, uncomplicated; I25.10 Atherosclerotic heart disease of native coronary artery without angina pectoris; K21.9 Gastro-esophageal reflux disease without esophagitis; E78.5 Hyperlipidemia, unspecified; I25.2 Old myocardial infarction; Z88.6 Allergy status to analgesic agent; Z86.16 Personal history of COVID-19; Z98.84 Bariatric surgery status; Z90.49 Acquired absence of other specified parts of digestive tract; Z90.710 Acquired absence of both cervix and uterus; Z98.890 Other specified postprocedural states; Z87.891 Personal history of nicotine dependence; W19.XXXA Unspecified fall, initial encounter; Y93.89 Activity, other specified; Y92.89 Other specified places as the place of occurrence of the external cause; Y99.8 Other external cause status

== ENCOUNTER 2025-02-03 14:11 | Emergency (ER) | payer OTHER ==
[~2025-02-03] VITALS: Ht 261.6 cm; Wt 74.8 kg
[~2025-02-03 14:11] MED LIST changes: +CARAFATE1 GM PO; +DRIZALMA SPRINK60 MG PO; +LEVOXYL75 MCG PO; +TOPROL XL25 MG PO
[2025-02-03] MEDS ORDERED: Acetaminophen/Oxycodone 5 MG/325 MG TABLET PO ONE (14:40)
[2025-02-03 14:44] LABS: BASO # 0.0 10*3/uL (0.0-0.1); BASO % 0.9 % (0.0-1.0); EOS # 0.0 10*3/uL (0.0-0.4); EOS % 0.9 % (1.0-4.0); MEAN CELL VOLUME 86.6 fl (81.0-99.0); MEAN CORPUSCULAR HGB 25.9 pg (27.0-31.0); MEAN PLATELET VOLUME 10.0 fl (9.6-12.3); MONO # 0.7 10*3/uL (0.1-1.0); MONO % 14.7 % (3.0-9.0); NEUT # 2.9 10*3/uL (2.3-7.9); NEUT % 63.2 % (47.0-73.0); NUCLEATED RED BLOOD CELL 0.0 % (0.0-0.0); NUCLEATED RED BLOOD CELL 0.0 10*3/uL (0.0-0.0); PLATELET COUNT AUTOMATED 261 10*3/uL (130-400); RED CELL DISTRI WIDTH 15.1 % (0-14.5)
[2025-02-03 15:02] LABS: BUN 9 mg/dl (9-23)
[2025-02-03] MEDS ORDERED: PREDNISONE20 M1 PO (15:19)
[2025-02-03] MEDS ORDERED: AVPAK AZITHROM250 M1 PO (15:19)
[2025-02-03] MEDS ORDERED: AZITHROMYCIN 250 MG TAB PO ONE (15:20)
== END 2025-02-03 15:31 | disposition home or self-care (01) ==
LOC: ED 14:11
PROVIDERS: Nurse Practitioner Family
DX: S39.012A Strain of muscle, fascia and tendon of lower back, initial encounter (principal); S80.212A Abrasion, left knee, initial encounter; J45.909 Unspecified asthma, uncomplicated; I25.10 Atherosclerotic heart disease of native coronary artery without angina pectoris; K21.9 Gastro-esophageal reflux disease without esophagitis; E78.5 Hyperlipidemia, unspecified; E66.9 Obesity, unspecified; I25.2 Old myocardial infarction; Z87.891 Personal history of nicotine dependence; Z90.710 Acquired absence of both cervix and uterus; Z90.49 Acquired absence of other specified parts of digestive tract; Z98.84 Bariatric surgery status; Z98.890 Other specified postprocedural states; Z68.25 Body mass index [BMI] 25.0-25.9, adult; Z86.16 Personal history of COVID-19; Z88.6 Allergy status to analgesic agent; W19.XXXA Unspecified fall, initial encounter; Y93.89 Activity, other specified; Y92.89 Other specified places as the place of occurrence of the external cause; Y99.8 Other external cause status

== ENCOUNTER → 2025-04-03 | Emergency (ER) | payer OTHER ==
[~2025-04-03] VITALS: Ht 160 cm; Wt 68.0 kg
[~2025-04-03] MED LIST changes: +AVPAK AZITHROM250 M1 PO; +Dicyclomine Hydrochloride 20 MG/2 ML VIAL IM ONE; +IOHEXOL 300 MG/ML 100 ML VIAL IV ONE; +Ondansetron Hydrochloride 4 MG/2 ML VIAL IV ONE
[2025-04-03 12:34] LABS: BASO # 0.0 10*3/uL (0.0-0.1); BASO % 0.8 % (0.0-1.0); EOS # 0.0 10*3/uL (0.0-0.4); EOS % 0.2 % (1.0-4.0); MEAN CELL VOLUME 85.7 fl (81.0-99.0); MEAN CORPUSCULAR HGB 25.5 pg (27.0-31.0); MEAN PLATELET VOLUME 10.3 fl (9.6-12.3); MONO # 0.4 10*3/uL (0.1-1.0); MONO % 8.6 % (3.0-9.0); NEUT # 3.3 10*3/uL (2.3-7.9); NEUT % 69.2 % (47.0-73.0); NUCLEATED RED BLOOD CELL 0.0 % (0.0-0.0); NUCLEATED RED BLOOD CELL 0.0 10*3/uL (0.0-0.0); PLATELET COUNT AUTOMATED 260 10*3/uL (130-400); RED CELL DISTRI WIDTH 15.6 % (0-14.5)
[2025-04-03 12:41] LABS: BILIRUBIN Negative (Negative); BLOOD Negative (Negative); CLARITY Clear (Clear); COLOR Yellow (Yellow); KETONE Negative (Negative); LEUKO ESTERASE Negative (Negative); NITRITE Negative (Negative); SPECIFIC GRAVITY 1.020 (1.001-1.030); UROBILINOGEN 1.0 E.U./dl (0.0-1.0)
[2025-04-03 12:54] LABS: PH >= 9.0 (4.5-8.0)
[2025-04-03 12:55] LABS: BUN 8 mg/dl (9-23); SGPT/ALT 18 U/L (5-49)
[2025-04-03 12:55] LABS: YEAST TRACE
[2025-04-03 12:56] LABS: BACTERIA 2+
== END ==
LOC: ED
PROVIDERS: Student in an Organized Health Care Education/Training Program
DX: K83.8 Other specified diseases of biliary tract (principal); R11.2 Nausea with vomiting, unspecified; Z98.84 Bariatric surgery status; Z88.6 Allergy status to analgesic agent; Z79.899 Other long term (current) drug therapy; Z90.49 Acquired absence of other specified parts of digestive tract; Z90.710 Acquired absence of both cervix and uterus; Z95.5 Presence of coronary angioplasty implant and graft; Z98.890 Other specified postprocedural states; Z96.612 Presence of left artificial shoulder joint; Z87.891 Personal history of nicotine dependence

== ENCOUNTER 2025-04-07 20:54 | Emergency (ER) | payer OTHER ==
[~2025-04-07 20:54] MED LIST changes: -Dicyclomine Hydrochloride 20 MG/2 ML VIAL IM ONE; -IOHEXOL 300 MG/ML 100 ML VIAL IV ONE; -Ondansetron Hydrochloride 4 MG/2 ML VIAL IV ONE
[2025-04-07] MEDS ORDERED: SODIUM CHLORIDE 0.9% 1,000 ML IV ONE (21:10)
[2025-04-07 21:39] LABS: BASO # 0.1 10*3/uL (0.0-0.1); BASO % 0.6 % (0.0-1.0); EOS # 0.0 10*3/uL (0.0-0.4); EOS % 0.4 % (1.0-4.0); MEAN CELL VOLUME 85.9 fl (81.0-99.0); MEAN CORPUSCULAR HGB 25.4 pg (27.0-31.0); MEAN PLATELET VOLUME 10.3 fl (9.6-12.3); MONO # 0.9 10*3/uL (0.1-1.0); MONO % 10.0 % (3.0-9.0); NEUT # 7.0 10*3/uL (2.3-7.9); NEUT % 77.2 % (47.0-73.0); NUCLEATED RED BLOOD CELL 0.0 % (0.0-0.0); NUCLEATED RED BLOOD CELL 0.0 10*3/uL (0.0-0.0); PLATELET COUNT AUTOMATED 237 10*3/uL (130-400); RED CELL DISTRI WIDTH 15.6 % (0-14.5)
[2025-04-07 22:21] LABS: BUN 12 mg/dl (9-23); SGPT/ALT 22 U/L (5-49)
[2025-04-07 22:35] LABS: BILIRUBIN 2+ (Negative); BLOOD Negative (Negative); CLARITY Cloudy (Clear); COLOR Dark Yellow (Yellow); KETONE Trace (Negative); LEUKO ESTERASE Trace (Negative); NITRITE Negative (Negative); PH 5.5 (4.5-8.0); SPECIFIC GRAVITY >= 1.030 (1.001-1.030); UROBILINOGEN 1.0 E.U./dl (0.0-1.0)
[2025-04-07 22:42] LABS: URINE AMPHETAMINES Negative (1000ng/ml); URINE BARBITURATES Negative (200ng/ml); URINE BENZODIAZEPINES Negative (200ng/ml); URINE CANNABINOIDS (THC) Positive (50ng/ml); URINE COCAINE Negative (300ng/ml); URINE METHADONE Negative (300ng/ml); URINE OPIATES Positive (300ng/ml); URINE PHENCYCLIDINE Negative (25ng/ml)
[2025-04-07 22:51] LABS: BACTERIA 2+; YEAST TRACE
== END 2025-04-07 22:48 | disposition home or self-care (01) ==
LOC: ED 20:54
PROVIDERS: Nurse Practitioner Family
DX: T50.905A Adverse effect of unspecified drugs, medicaments and biological substances, initial encounter (principal); R79.89 Other specified abnormal findings of blood chemistry; R41.0 Disorientation, unspecified; E78.5 Hyperlipidemia, unspecified; J44.9 Chronic obstructive pulmonary disease, unspecified; I25.2 Old myocardial infarction; F41.9 Anxiety disorder, unspecified; K21.9 Gastro-esophageal reflux disease without esophagitis; F32.A Depression, unspecified; Z87.891 Personal history of nicotine dependence; Z90.49 Acquired absence of other specified parts of digestive tract; Z98.890 Other specified postprocedural states; Z98.84 Bariatric surgery status; Z90.710 Acquired absence of both cervix and uterus; Z88.6 Allergy status to analgesic agent; Z79.899 Other long term (current) drug therapy; Y92.89 Other specified places as the place of occurrence of the external cause